=== PATIENT | female | born 1960 | race Caucasian/White ===

== ENCOUNTER → 2017-02-18 | Outpatient (CLI) | payer BC ==
[~2017-02-18] MED LIST: CALC500C70 PO; HYDR200T5 PO; LEFL20TA PO; PRD/1 PO; SIMV1POW PO
--- NOTE | 2017-02-18 13:49 | DIAGNOSTIC IMAGING REPORT ---
EXAMINATION: RENAL ULTRASOUND CLINICAL HISTORY: R39.15 Urinary [id number] Urinary symptom or signPt would like COMPARISON STUDY: 09-19 FINDINGS: The right kidney measures 12.2 cm. The left kidney measures 10.3 cm. There is no evidence of hydronephrosis. There are no renal masses. There is a prominent column of [place] on the right. No bladder abnormalities are visualized. Bilateral ureteral jets were visualized. IMPRESSION : Electronically signed by: Terrence Gonzalez M.D. 02/18/2017 1:47 PM Dictated Date/Time: 02/18/2017 1:46 PM
== END | disposition home or self-care (01) ==
LOC: C.ULTR 13:05
PROVIDERS: ATTEND Physician Assistant
DX: R39.15 Urgency of urination (principal)

== ENCOUNTER → 2017-02-21 | Outpatient (CLI) | payer BC ==
[2017-02-21 18:37] LABS: MANUAL MICROSCOPIC REQUIRED? NO; REVIEW REQ? NO; URINE APPEARANCE CLEAR (CLEAR); URINE BILIRUBIN NEG (NEG); URINE COLOR YELLOW; URINE NITRITE NEG (NEG); URINE SPECIFIC GRAVITY 1.013 (1.000-1.030); UROBILINOGEN NEG (NEG); ZZUR CULT IF INDIC CLEAN CATCH NO
== END ==
LOC: C.LABMFLN 10:45
PROVIDERS: ATTEND Physician Assistant
DX: R39.9 Unspecified symptoms and signs involving the genitourinary system (principal)

== ENCOUNTER → 2017-04-25 | Outpatient (CLI) | payer BC ==
[2017-04-25 12:57] LABS: BASO % 1.9 %; BASO ABS # 0.15 K/uL (0-0.2); COMPLETE YES; EOS % 2.2 %; IG% 0.4 %; LYMPH % 17.9 %; LYMPH ABS # 1.44 K/uL (1.2-3.4); MEAN CELL VOLUME 89.6 fL (80-100); MEAN CORPUSCULAR HEMOGLOBIN 29.2 pg (25-34); MEAN CORPUSCULAR HGB CONC 32.6 g/dl (32-36); MEAN PLATELET VOLUME 10.5 fL (7.4-10.4); MONO % 10.9 %; NEUT % 66.7 %; PLATELET COUNT 427 K/uL (130-400); RED BLOOD COUNT 4.69 M/uL (4.2-5.4); WHITE BLOOD COUNT 8.05 K/uL (4.8-10.8)
[2017-04-25 13:37] LABS: ALT/SGPT 40 U/L (12-78); BLOOD UREA NITROGEN 14 mg/dl (7-18); BUN/CREATININE RATIO 16.3 (10-20); CALCIUM 9.5 mg/dl (8.5-10.1); CARBON DIOXIDE 26 mmol/L (21-32); CHLORIDE 107 mmol/L (98-107); CREATININE 0.84 mg/dl (0.60-1.20); GLUCOSE 88 mg/dl (70-99); POTASSIUM 3.9 mmol/L (3.5-5.1); SODIUM 139 mmol/L (136-145)
[2017-04-25 13:41] LABS: ALKALINE PHOSPHATASE 90 U/L (45-117); AST/SGOT 27 U/L (15-37); CHOLESTEROL 240 mg/dl (0-200); CHOLESTEROL/HDL RATIO 3.7; HDL CHOLESTEROL 65 mg/dl; LDL CHOLESTEROL CALCULATED 160 mg/dl; TRIGLYCERIDES 74 mg/dl (0-150); VERY LOW DENSITY LIPOPROT CALC 15 mg/dl
[2017-04-25 13:45] LABS: ESTIMATED AVERAGE GLUCOSE 108 mg/dl; HA1C FLAG Normal (Normal)
[2017-04-25 14:09] LABS: LYME DISEASE AB IGG NEG (NEG); LYME DISEASE AB IGM NEG (NEG)
[2017-04-26 16:10] LABS: ALBUMIN 4.1 G/DL (3.8-4.8); GAMMA GLOBULIN 0.7 G/DL (0.8-1.7); TOTAL PROTEIN 6.6 G/DL (6.2-8.3)
== END | disposition home or self-care (01) ==
LOC: C.LABMFLN 09:13
PROVIDERS: ATTEND Internal Medicine
DX: D64.9 Anemia, unspecified (principal); G62.9 Polyneuropathy, unspecified; E78.5 Hyperlipidemia, unspecified

== ENCOUNTER → 2017-09-27 | Outpatient (CLI) | payer BC ==
[2017-09-27 17:59] LABS: BLOOD UREA NITROGEN 16 mg/dl (7-18); BUN/CREATININE RATIO 20.9 (10-20); CARBON DIOXIDE 24 mmol/L (21-32); CHLORIDE 107 mmol/L (98-107); CREATININE 0.77 mg/dl (0.60-1.20); GLUCOSE 96 mg/dl (70-99); SODIUM 138 mmol/L (136-145)
== END | disposition home or self-care (01) ==
LOC: C.LABMFLN 15:11
PROVIDERS: ATTEND Internal Medicine
DX: Z51.81 Encounter for therapeutic drug level monitoring (principal); Z79.899 Other long term (current) drug therapy; G62.9 Polyneuropathy, unspecified

== ENCOUNTER → 2017-12-12 | Outpatient (CLI) | payer OTHER | END | disposition home or self-care (01) | LOC: C.LABMFLN 13:32 | PROVIDERS: ATTEND Internal Medicine | DX: R39.9 Unspecified symptoms and signs involving the genitourinary system (principal) ==

== ENCOUNTER 2018-01-07 16:29 | Emergency (ER) | payer OTHER ==
[~2018-01-07] VITALS: Ht 162.6 cm; Wt 77.1 kg
[2018-01-07 16:34] VITALS: TEMP 36.8; Ht 162.6 cm; Wt 77.1 kg
[2018-01-07] MEDS ORDERED: SODIUM CHLORIDE 0.9% 1000ML 1,000 ML IV STA (18:19)
[2018-01-07] MEDS ORDERED: XYLOCAINE 1%/SOD BICARB 20 ML VIAL INFIL ONE (18:30)
[2018-01-07] MEDS ORDERED: DEXAMETHASONE **PF** INJ 10 MG/ML VIAL IV ONE (18:30)
[2018-01-07 19:07] LABS: BASO % 0.5 %; BASO ABS # 0.06 K/uL (0-0.2); EOS % 0.2 %; EOS ABS # 0.03 K/uL (0-0.5); HEMATOCRIT 41.4 % (37-47); HEMOGLOBIN 13.9 g/dL (12.0-16.0); IG# 0.05 K/uL (0.00-0.02); LYMPH % 25.7 %; LYMPH ABS # 3.35 K/uL (1.2-3.4); MEAN CELL VOLUME 88.3 fL (80-100); MEAN CORPUSCULAR HEMOGLOBIN 29.6 pg (25-34); MEAN CORPUSCULAR HGB CONC 33.6 g/dl (32-36); MEAN PLATELET VOLUME 10.2 fL (7.4-10.4); MONO % 11.6 %; MONO ABS # 1.52 K/uL (0.11-0.59); NEUT % 61.6 %; NEUT ABS # 8.04 K/uL (1.4-6.5); PLATELET COUNT 424 K/uL (130-400); RED CELL DISTRIBUTION WIDTH CV 13.7 % (11.5-14.5); RED CELL DISTRIBUTION WIDTH SD 44.2 fL (36.4-46.3); WHITE BLOOD COUNT 13.05 K/uL (4.8-10.8)
[2018-01-07 19:26] LABS: ALBUMIN 3.7 gm/dl (3.4-5.0); CALCIUM 9.4 mg/dl (8.5-10.1); CREATININE 0.72 mg/dl (0.60-1.20)
[2018-01-07 19:29] LABS: TOTAL PROTEIN 7.7 gm/dl (6.4-8.2)
--- NOTE | 2018-01-07 19:37 | DIAGNOSTIC IMAGING REPORT ---
CHEST ONE VIEW PORTABLE HISTORY: Generalized abdominal pain. COMPARISON: None. FINDINGS: The lungs are clear. Cardiac silhouette is normal in size. No pleural effusions. No pneumothorax. IMPRESSION: No acute process. Electronically signed by: Ramakrishna Burroughs M.D. 01/07/2018 7:36 PM Dictated Date/Time: 01/07/2018 7:34 PM
--- NOTE | 2018-01-07 19:40 | DIAGNOSTIC IMAGING REPORT ---
RIGHT KNEE 3 VIEWS HISTORY: Right knee pain swelling COMPARISON: None. FINDINGS: There is no fracture or dislocation. Small knee effusion. Mild prepatellar soft tissue swelling. Mild tricompartmental osteoarthritis. No radiopaque foreign bodies. IMPRESSION: 1. No fractures within the right knee. 2. Mild tricompartmental osteoarthritis. 3. Small knee effusion and mild anterior soft tissue swelling. Electronically signed by: Ramakrishna Burroughs M.D. 01/07/2018 7:39 PM Dictated Date/Time: 01/07/2018 7:38 PM
[2018-01-07 20:11] LABS: INFLUENZA A PCR Neg for Influ A (NEG); INFLUENZA B PCR Neg for Influ B (NEG)
[2018-01-07] MEDS ORDERED: IBUP-1451 PO (20:57)
--- NOTE | 2018-01-07 21:00 | EMERGENCY ROOM VISIT NOTE ---
History Report prepared by Sb: Sarah Polk Under the Supervision of: Dr. Efrem Oneill M.D. First contact with patient: 18:13 Chief Complaint: KNEEPAIN Stated Complaint: SWELLING IN THE KNEES History of Present Illness The patient is a 57 year old female who presents to the Emergency Room with complaints of worsening right knee swelling starting a couple days ago. The patient has a history of RA. She had fluid drained from her knee 2 months ago because she was having difficulty walking. In the last couple of days, the swelling has worsened again. 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 She was sent to the ED from her PCPs office today. The patient reports she has had a fever of 99-100 since yesterday and has had chills. She reports some cough, congestion, and nausea. She is having some RLQ abdominal pain and feels bloated. She has felt bloated before, but is worse today. She reports urinary frequency. She denies any vomiting. She denies any fall or knee injury. She denies any history of diabetes. She is not on blood thinners. She has had a cholecystectomy and splenectomy. She has a history of ITP. She takes prednisone, Plaquenil, and leflunomide for her RA. Source of History: patient Onset: couple days ago Position: knee (right) Quality: other (swelling, pain) Timing: worsening Associated Symptoms: + fevers, + chills, + cough, + nausea, + abdominal pain , + urinary symptoms, No vomiting Review of Systems See HPI for pertinent positives and negatives. A total of ten systems were reviewed and were otherwise negative. Past Medical & Surgical Medical Problems: (1) Cholecystectomy (2) Hysterectomy (3) Idiopathic thrombocytopenic purpura (4) Rheumatoid arthritis (5) Splenectomy Family History Diabetes mellitus Heart disease Hypertension Kidney disease Kidney stones Social History Smoking Status: Never Smoker Marital Status: Housing Status: lives with family Current/Historical Medications Scheduled Calcium/Vitamin D (Os-King 500 Plus D), 1 TAB PO BID Hydroxychloroquine Sulfate (Plaquenil), 200 MG PO BID Leflunomide (Arava), 20 MG PO DAILY Prednisone (Prednisone), 5 MG PO DAILY Simvastatin (Bulk) (Simvastatin), 20 MG PO DAILY Scheduled PRN Ibuprofen Tab (Motrin), 800 MG PO Q8H PRN for Pain Allergies Coded Allergies: Nitrofurantoin (Verified Allergy, Unknown, rash, 04/04/15) Sulfa Drugs (Verified Allergy, Unknown, "Sunburnt look" rash, 04/04/15) Physical Exam Vital Signs Date Time Temp Pulse Resp B/P (MAP) Pulse Ox O2 Delivery O2 Flow Rate FiO2 01/07/18 21:56 91 124/84 94 01/07/18 20:25 96 155/99 96 Room Air 01/07/18 18:30 100 135/75 95 Room Air 01/07/18 16:34 36.8 13 17 157/90 95 Room Air Physical Exam GENERAL: Awake, alert, well-appearing, in no distress HENT: Normocephalic, atraumatic. Oropharynx unremarkable. EYES: Normal conjunctiva. Sclera non-icteric. NECK: Supple. No nuchal rigidity. FROM. No JVD. RESPIRATORY: Clear to auscultation. CARDIAC: Regular rate, normal rhythm. Extremities warm and well perfused. Pulses equal. ABDOMEN: Soft, non-distended. No tenderness to palpation. No rebound or guarding. No masses. RECTAL: Deferred. MUSCULOSKELETAL: Chest examination reveals no tenderness. The back is symmetrical on inspection without obvious abnormality. There is no CVA tenderness to palpation. No joint edema. LOWER EXTREMITIES: Calves are equal size bilaterally and non-tender. Mild swelling to the right knee, FROM with mild discomfort, no erythema or warmth. No discoloration. NEURO: Normal sensorium. No sensory or motor deficits noted. SKIN: No rash or jaundice noted. Medical Decision & Procedures ER Provider Diagnostic Interpretation: Radiology results as stated below per my review and radiologist interpretation: CHEST ONE VIEW PORTABLE HISTORY: Generalized abdominal pain. COMPARISON: None. FINDINGS: The lungs are clear. Cardiac silhouette is normal in size. No pleural effusions. No pneumothorax. IMPRESSION: No acute process. Electronically signed by: Ramakrishna Burroughs M.D. 01/07/2018 7:36 PM Dictated Date/Time: 01/07/2018 7:34 PM RIGHT KNEE 3 VIEWS HISTORY: Right knee pain swelling COMPARISON: None. FINDINGS: There is no fracture or dislocation. Small knee effusion. Mild prepatellar soft tissue swelling. Mild tricompartmental osteoarthritis. No radiopaque foreign bodies. IMPRESSION: 1. No fractures within the right knee. 2. Mild tricompartmental osteoarthritis. 3. Small knee effusion and mild anterior soft tissue swelling. Electronically signed by: Ramakrishna Burroughs M.D. 01/07/2018 7:39 PM Dictated Date/Time: 01/07/2018 7:38 PM Laboratory Results 01/07/18 18:40 Red Blood Count 4.69, Mean Corpuscular Volume 88.3, Mean Corpuscular Hemoglobin 29.6, Mean Corpuscular Hemoglobin Concent 33.6, Mean Platelet Volume 10.2, Neutrophils (%) (Auto) 61.6, Lymphocytes (%) (Auto) 25.7, Monocytes (%) (Auto) 11.6, Eosinophils (%) (Auto) 0.2, Basophils (%) (Auto) 0.5, Neutrophils # (Auto ) 8.04, Lymphocytes # (Auto) 3.35, Monocytes # (Auto) 1.52, Eosinophils # (Auto ) 0.03, Basophils # (Auto) 0.06 01/07/18 18:40 Test 01/07/18 18:40 01/07/18 19:00 White Blood Count 13.05 K/uL (4.8-10.8) Red Blood Count 4.69 M/uL (4.2-5.4) Hemoglobin 13.9 g/dL (12.0-16.0) Hematocrit 41.4 % (37-47) Mean Corpuscular Volume 88.3 fL (80-100) Mean Corpuscular Hemoglobin 29.6 pg (25-34) Mean Corpuscular Hemoglobin Concent 33.6 g/dl (32-36) Platelet Count 424 K/uL (130-400) Mean Platelet Volume 10.2 fL (7.4-10.4) Neutrophils (%) (Auto) 61.6 % Lymphocytes (%) (Auto) 25.7 % Monocytes (%) (Auto) 11.6 % Eosinophils (%) (Auto) 0.2 % Basophils (%) (Auto) 0.5 % Neutrophils # (Auto) 8.04 K/uL (1.4-6.5) Lymphocytes # (Auto) 3.35 K/uL (1.2-3.4) Monocytes # (Auto) 1.52 K/uL (0.11-0.59) Eosinophils # (Auto) 0.03 K/uL (0-0.5) Basophils # (Auto) 0.06 K/uL (0-0.2) RDW Standard Deviation 44.2 fL (36.4-46.3) RDW Coefficient of Variation 13.7 % (11.5-14.5) Immature Granulocyte % (Auto) 0.4 % Immature Granulocyte # (Auto) 0.05 K/uL (0.00-0.02) Erythrocyte Sedimentation Rate 41 mm/hr (0-21) Anion Gap 7.0 mmol/L (3-11) Est Creatinine Clear Calc Drug Dose 84.6 ml/min Estimated GFR () 106.2 Estimated GFR (Non- 91.7 BUN/Creatinine Ratio 12.0 (10-20) Calcium Level 9.4 mg/dl (8.5-10.1) Total Bilirubin 0.6 mg/dl (0.2-1) Direct Bilirubin 0.1 mg/dl (0-0.2) Aspartate Amino Transf (AST/SGOT) 25 U/L (15-37) Alanine Aminotransferase (ALT/SGPT) 40 U/L (12-78) Alkaline Phosphatase 92 U/L (45-117) C-Reactive Protein 5.52 mg/dl (0-0.29) Total Protein 7.7 gm/dl (6.4-8.2) Albumin 3.7 gm/dl (3.4-5.0) Lipase 95 U/L (73-393) Urine Color YELLOW Urine Appearance CLEAR (CLEAR) Urine pH 6.0 (4.5-7.5) Urine Specific [place] 1.016 (1.000-1.030) Urine Protein NEG (NEG) Urine Glucose (UA) NEG (NEG) Urine Ketones TRACE (NEG) Urine Occult Blood TRACE (NEG) Urine Nitrite NEG (NEG) Urine Bilirubin NEG (NEG) Urine Urobilinogen NEG (NEG) Urine Leukocyte Esterase NEG (NEG) Urine WBC (Auto) 1-5 /hpf (0-5) Urine RBC (Auto) 0-4 /hpf (0-4) Urine Hyaline Casts (Auto) 1-5 /lpf (0-5) Urine Epithelial Cells (Auto) 20-30 /lpf (0-5) Urine Bacteria (Auto) NEG (NEG) Influenza Type A (RT-PCR) Neg for Influ A (NEG) Influenza Type B (RT-PCR) Neg for Influ B (NEG) Laboratory results reviewed by me Medications Administered Medications (Trade) Dose Ordered Sig/Sudhir Route Start Time Stop Time Status Last Admin Dose Admin Dexamethasone Sodium Phosphate (Dexamethasone Inj Pf) 10 mg NOW ONCE IV 01/07/18 18:30 01/07/18 18:31 DC 01/07/18 18:56 10 MG Sodium Chloride 1,000 ml @ 999 mls/hr Q1H1M STAT IV 01/07/18 18:19 01/07/18 19:19 DC 01/07/18 18:51 999 MLS/HR Ibuprofen (Motrin Tab) 800 mg STK-MED ONCE .ROUTE 01/07/18 21:33 01/07/18 21:34 DC 01/07/18 21:37 800 MG Procedure Arthrocentesis Indication: effusion Location: Right knee Verbal consent was obtained after the risks and benefits were explained, including but not limited to bleeding, scarring, infection, pain, and bone/joint /nerve damage. At this time, the risks of the procedure are less than the risks of NOT performing the procedure. A time out was taken and the correct patient and site identified. The skin was prepped with betadine and a sterile field set. The wound was anesthetized with 3 ml of 1% lidocaine without epinephrine. Arthrocentesis was attempted under static and then dynamic ultrasound guidance but was unsuccessful given only small effusion appreciated. No complications and the patient tolerated the procedure well. ED Course 1816: The patient was evaluated in room C2B. A complete history and physical exam was performed. 2011: I reevaluated the patient. I updated her on the results. I discussed the risks and benefits of performing an aspiration. She verbalized understanding and requested that I do the aspiration. 2020: I performed a right knee aspiration according to the procedure note above. I discussed results and discharge instructions: She verbalized understanding and agreement. The patient is ready for discharge. Medical Decision I reviewed the patient's past medical history, medications, and the nursing notes as described above. Etiologies such as viral illness, URI, pneumonia, bronchitis, UTI, dehydration, electrolyte abnormalities, RA flare, gout, OA, septic knee, as well as others were entertained. The patient is a 57 y/o woman with a pmhx of rheumatoid arthritis, remote ITP s/ p splenectoy who presents to the emergency department with right knee pain per HPI. Of note patient reports persistent pain since having fluid drained at her rheumatologists office 1 month ago. Otherwise, reports mild congestion recently with chills and body aches. On arrival, the patient is relatively well appearing in NAD, AFVSS. FROM in right knee with mild discomfort. Patient able to bear weight. WBC 13 however in the setting of chronic prednisone. ESR 41 and CRP nonspecific. Plain film demonstrates only small effusion. I d/w the patient that given small effusion it is unlikely that we would be able to remove any significant fluid. Moreover, Given the patient is afebrile and able to bear weight, unlikely to have septic joint at this time. Patient still requesting attempt for drainage and so arthrocentesis attempted under static and then dynamic US guidance but was unsuccessful. CXR negative. Flu negative. However given patient's URI sx likely has viral uri to explain her recent fatigue and body aches. Plan for outpatient rheum f/u. Findings and plan for follow-up reviewed with patient. Patient agreeable and d/c'd per discharge instructions. Medication Reconcilliation Current Medication List: was personally reviewed by me Blood Pressure Screening Patient's blood pressure: Elevated blood pressure Blood pressure disposition: Elevated BP felt to be situational Impression Primary Impression: Rheumatoid arthritis flare Additional Impressions: Knee effusion, right Upper respiratory infection Scribe Attestation The scribe's documentation has been prepared under my direction and personally reviewed by me in its entirety. I confirm that the note above accurately reflects all work, treatment, procedures, and medical decision making performed by me. Departure Information Dispostion Home / Self-Care Prescriptions Ibuprofen Tab (MOTRIN) 800 Mg Tab 800 MG PO Q8H Y for Pain for 7 Days, #21 TAB Prov: Efrem Oneill M.D. 01/07/18 Referrals No Doctor, Assigned (PCP) Patient Instructions ED Arthritis Rheumatoid, ED Upper Resp Infec No Abx Tx, Knee Pain, [facility], Swelling Knee Pain Reduce Additional Instructions Please follow up with your filtration plant mechanic in the next 1-3 days for re- evaluation. Your symptoms are most likely related to your rheumatoid arthritis as well as a likely viral upper respiratory infection. Otherwise, your exam, xray, and lab results did not show signs of an emergent condition at this time. Continue your current medications. Acetaminophen or ibuprofen for pain and fevers as needed. Drink plenty of fluids to ensure hydration. Return to the emergency department for worsening symptoms as described in the accompanying instructions. Problem Qualifiers
[2018-01-07] MEDS ORDERED: IBUPROFEN 600 MG TAB PO STA (21:01)
[2018-01-07] MEDS ORDERED: IBUPROFEN 800 MG TAB ONE (21:33)
[2018-01-07 21:56] VITALS: BP 124/84; PULSE 91; O2SAT 94
== END 2018-01-07 21:40 | disposition home or self-care (01) ==
LOC: C.EDB 16:30 → C.EDC 21:40
DX: M25.461 Effusion, right knee (principal); M06.9 Rheumatoid arthritis, unspecified; J06.9 Acute upper respiratory infection, unspecified; D69.3 Immune thrombocytopenic purpura; Z79.52 Long term (current) use of systemic steroids; Z90.81 Acquired absence of spleen; Z88.2 Allergy status to sulfonamides; Z88.1 Allergy status to other antibiotic agents

== ENCOUNTER → 2018-05-16 | Outpatient (CLI) | payer OTHER ==
[2018-05-16 15:38] LABS: HEMATOCRIT 41.2 % (37-47); HEMOGLOBIN 13.4 g/dL (12.0-16.0); MEAN CELL VOLUME 90.2 fL (80-100); MEAN CORPUSCULAR HEMOGLOBIN 29.3 pg (25-34); MEAN CORPUSCULAR HGB CONC 32.5 g/dl (32-36); MEAN PLATELET VOLUME 11.1 fL (7.4-10.4); PLATELET COUNT 401 K/uL (130-400); RED CELL DISTRIBUTION WIDTH CV 13.5 % (11.5-14.5); RED CELL DISTRIBUTION WIDTH SD 43.9 fL (36.4-46.3); WHITE BLOOD COUNT 9.56 K/uL (4.8-10.8)
[2018-05-16 16:21] LABS: ALBUMIN 3.6 gm/dl (3.4-5.0); ALKALINE PHOSPHATASE 76 U/L (45-117); ALT/SGPT 35 U/L (12-78); AST/SGOT 20 U/L (15-37); BLOOD UREA NITROGEN 12 mg/dl (7-18); CALCIUM 8.9 mg/dl (8.5-10.1); CARBON DIOXIDE 26 mmol/L (21-32); CREATININE 0.89 mg/dl (0.60-1.20); GLUCOSE 91 mg/dl (70-99); POTASSIUM 3.7 mmol/L (3.5-5.1); SODIUM 138 mmol/L (136-145); TOTAL PROTEIN 7.3 gm/dl (6.4-8.2)
== END | disposition home or self-care (01) ==
LOC: C.LAB1850 14:44
PROVIDERS: ATTEND Internal Medicine
DX: E78.5 Hyperlipidemia, unspecified (principal); D64.9 Anemia, unspecified; G62.9 Polyneuropathy, unspecified; M81.0 Age-related osteoporosis without current pathological fracture

== ENCOUNTER → 2018-05-19 | Outpatient (CLI) | payer OTHER | END | disposition home or self-care (01) | LOC: C.RDSM 16:00 | PROVIDERS: ATTEND Physical Medicine & Rehabilitation Sports Medicine | DX: M25.561 Pain in right knee (principal) ==